=== PATIENT | male | born 1960 | race Caucasian/White ===

== ENCOUNTER 2021-08-14 17:17 | Emergency (ER) | payer BC ==
[~2021-08-14] VITALS: Ht 172.7 cm; Wt 102.5 kg
[2021-08-14 17:30] VITALS: BP_SYST 99
--- NOTE | 2021-08-14 18:00 | NUR ---
Dr. Klein in triage to see pt
[2021-08-14] MEDS ORDERED: HYDR-3917 PO (18:49)
[2021-08-14] MEDS ORDERED: IBUP-1969 PO (18:49)
[2021-08-14 19:00] VITALS: BP_SYST 121
--- NOTE | 2021-08-14 19:02 | NUR ---
Patient given written and verbal discharge instructions and verbalizes understanding. ER MD discussed with patient the results and treatment provided. Patient in stable condition. ID arm band removed. Rx of norco, ibuprofen given. Patient educated on pain management and to follow up with PMD. Pain Scale . Opportunity for questions provided and answered. Medication side effect fact sheet provided.
== END 2021-08-14 19:01 | disposition home or self-care (01) ==
LOC: SED 17:17
DX: S99.921A Unspecified injury of right foot, initial encounter (principal); I10 Essential (primary) hypertension; Z88.0 Allergy status to penicillin; X58.XXXA Exposure to other specified factors, initial encounter; Y93.89 Activity, other specified; Y92.89 Other specified places as the place of occurrence of the external cause; Y99.8 Other external cause status
CPT/HCPCS: 99283